=== PATIENT | female | born 1940 | race Caucasian/White ===

== ENCOUNTER 2017-12-11 13:26 | Inpatient (IN) | payer OTHER ==
[2017-12-11 14:21] LABS: BASO % 0 % (0-3); EOS # 0.2 x10^3/uL (0.0-0.7); EOS % 2 % (0-3); LYMPH # 0.5 x10^3/uL (1.0-4.8); LYMPH % 6 % (24-48); MEAN CORPUSCULAR HEMOGLOBIN 30 pg (25-35); MEAN CORPUSCULAR HGB CONC 33 g/dL (31-37); MEAN CORPUSCULAR VOLUME 91 fL (79-100); MONO # 0.4 x10^3/uL (0.0-1.1); MONO % 5 % (0-9); NEUT # 6.7 x10^3uL (1.8-7.7); NEUT % 86 % (31-73); PLATELET COUNT 425 x10^3/uL (140-400); RED BLOOD COUNT 2.02 x10^6/uL (3.50-5.40); RED CELL DISTRIBUTION WIDTH 15.4 % (11.5-14.5); WHITE BLOOD COUNT 7.7 x10^3/uL (4.0-11.0)
[2017-12-11] MEDS: IPRATRPIUM/ALBUTEROL 0.5/2.5MG 3 ML NEBU. NEB ×3 (14:22→20:30)
[2017-12-11 14:30] LABS: ADD MAN DIFF? YES; HEMATOCRIT 18.4 % (36.0-47.0)
[2017-12-11 14:31] LABS: ANION GAP 21 (6-14); BLOOD UREA NITROGEN 38 mg/dL (7-20); BUN/CREATININE RATIO 8 (6-20); CARBON DIOXIDE 14 mmol/L (21-32); CHLORIDE 104 mmol/L (98-107); CREATININE 4.6 mg/dL (0.6-1.0); GFR 9.2; GLUCOSE 156 mg/dL (70-99); POTASSIUM 4.1 mmol/L (3.5-5.1); SODIUM 139 mmol/L (136-145)
[2017-12-11 14:35] LABS: INR 1.3 (0.8-1.1); PARTIAL THROMBOPLASTIN TIME 39 SEC (24-38); PROTHROMBIN TIME PATIENT 15.1 SEC (11.7-14.0)
[2017-12-11 14:37] LABS: ALBUMIN 2.7 g/dL (3.4-5.0); ALBUMIN/GLOBULIN RATIO 0.7 (1.0-1.7); ALK PHOS 133 U/L (46-116); ALT (SGPT) 16 U/L (14-59); AST (SGOT) 21 U/L (15-37); MAGNESIUM 1.8 mg/dL (1.8-2.4); TOTAL BILIRUBIN 0.1 mg/dL (0.2-1.0); TOTAL PROTEIN 6.6 g/dL (6.4-8.2)
[2017-12-11 14:42] LABS: NT-PRO BNP 28158 pg/mL (0-449)
[2017-12-11] MEDS: methylPREDNISolone SOD SUCC PF 125 MG/2 ML VIAL. IV (14:48)
[2017-12-11] MEDS ORDERED: MORPHINE SULFATE 2 MG/ML DISP.SYRIN. IV (15:00)
[2017-12-11] MEDS ORDERED: ONDANSETRON PF 4 MG/2 ML VIAL. IV (15:00)
[2017-12-11] MEDS ORDERED: ACETAMINOPHEN 325 MG TABLET. PO (15:00)
[2017-12-11 15:14] LABS: FECAL OB PT NEGATIVE (NEG); NEG OBC FOB NEG; POS OBC FOB POS
[2017-12-11 15:44] LABS: INFLUENZA A PATIENT NEGATIVE (NEGATIVE); INFLUENZA B PATIENT NEGATIVE (NEGATIVE); OBC FLU VALID
[2017-12-11] MEDS: FUROSEMIDE 40 MG/4 ML VIAL. IVP (15:58)
[2017-12-11 16:56] LABS: IMMEDIATE SPIN CROSSMATCH 1 3
[2017-12-11 17:09] LABS: % BANDS 2 % (0-9); % EOS 2 % (0-5); % LYMPHS 9 % (24-48); % MONOS 5 % (0-10); % SEGS 82 % (35-66)
[2017-12-11 17:11] LABS: ANISOCYTOSIS MOD; PLT ESTIMATE INCREASED (ADEQUATE)
[2017-12-11 17:14] LABS: BURR CELLS FEW; SCHISTOCYTES FEW
[2017-12-11 17:15] LABS: POIKILOCYTOSIS MOD; SPHEROCYTES OCC
[2017-12-11] MEDS: FERROUS SULFATE ORAL 300 MG/5 ML SOLUTION. PO (17:51)
[2017-12-11] MEDS: ATORVASTATIN CALCIUM 40 MG TABLET. PO (21:09)
[2017-12-11 21:49] LABS: TROPONINI 0.019 ng/mL (0.000-0.055)
[2017-12-12] MEDS ORDERED: ALBUTEROL SULFATE 2.5 MG/3 ML NEBU. NEB (03:30)
[2017-12-12 05:18] LABS: ADD MAN DIFF? NO
[2017-12-12 05:44] LABS: BASO % 0 % (0-3); EOS % 0 % (0-3); LYMPH # 0.2 x10^3/uL (1.0-4.8); LYMPH % 2 % (24-48); MEAN CORPUSCULAR HEMOGLOBIN 28 pg (25-35); MEAN CORPUSCULAR HGB CONC 31 g/dL (31-37); MEAN CORPUSCULAR VOLUME 88 fL (79-100); MONO # 0.1 x10^3/uL (0.0-1.1); MONO % 1 % (0-9); NEUT # 7.7 x10^3uL (1.8-7.7); NEUT % 97 % (31-73); PLATELET COUNT 380 x10^3/uL (140-400); RED BLOOD COUNT 2.52 x10^6/uL (3.50-5.40); RED CELL DISTRIBUTION WIDTH 19.8 % (11.5-14.5)
[2017-12-12 06:09] LABS: HEMATOCRIT 22.2 % (36.0-47.0)
[2017-12-12 06:15] LABS: ANION GAP 21 (6-14); BLOOD UREA NITROGEN 40 mg/dL (7-20); CALCIUM 8.9 mg/dL (8.5-10.1); CARBON DIOXIDE 14 mmol/L (21-32); CHLORIDE 106 mmol/L (98-107); CREATININE 4.6 mg/dL (0.6-1.0); GFR 9.2; GLUCOSE 173 mg/dL (70-99); POTASSIUM 4.2 mmol/L (3.5-5.1); SODIUM 141 mmol/L (136-145)
[2017-12-12 06:21] LABS: TROPONINI 0.021 ng/mL (0.000-0.055)
[2017-12-12] MEDS ORDERED: PANTOPRAZOLE 40 MG TABLET.DR. PO (07:30)
[2017-12-12] MEDS: IPRATRPIUM/ALBUTEROL 0.5/2.5MG 3 ML NEBU. NEB ×4 (07:58→20:31)
[2017-12-12] MEDS ORDERED: FERROUS SULFATE 325 MG TABLET. PO (08:00)
[2017-12-12] MEDS: FUROSEMIDE 40 MG TABLET. PO (08:00)
[2017-12-12] MEDS: PANTOPRAZOLE 40 MG TABLET.DR. PO (09:18)
[2017-12-12] MEDS: FERROUS SULFATE ORAL 300 MG/5 ML SOLUTION. PO ×2 (09:18→16:57)
[2017-12-12] MEDS: amLODIPine BESYLATE 10 MG TABLET PO (09:31)
[2017-12-12] MEDS: FUROSEMIDE 40 MG/4 ML VIAL. IVP (12:59)
[2017-12-12] MEDS: SODIUM BICARB ADULT 8.4% 50 MEQ/50 ML DISP.SYRIN. IV ×4 (13:00→18:00)
[2017-12-12] MEDS: methylPREDNISolone SOD SUCC PF 40 MG/ML VIAL. IV ×2 (13:00→21:02)
[2017-12-12] MEDS: POTASSIUM CHLORIDE 20 MEQ TABLET.ER. PO (13:06)
[2017-12-12] MEDS ORDERED: MAGNESIUM SULFATE 2GM 50 ML IV ×2 (13:30→13:45)
[2017-12-12] MEDS ORDERED: TOTAL VOLUME IV (13:30)
[2017-12-12] MEDS ORDERED: POTASSIUM CHLORIDE 20MEQ 50 ML IV ×2 (13:30)
[2017-12-12] MEDS ORDERED: FUROSEMIDE IV (13:30)
[2017-12-12 13:31] LABS: BASE EXCESS ABG -12 mmol/L (-3-3); HCO3 ABG 13 mmol/L (21-28); PCO2 ABG 25 mmHg (35-46); PH ABG 7.32 (7.35-7.45); PO2 ABG 82 mmHg (65-108); SAT O2 ABG 95 % (92-99)
[2017-12-12] MEDS ORDERED: LIDOCAINE WITH 8.4% SOD BICARB 3 ML DISP.SYRIN. (13:45)
[2017-12-12] MEDS ORDERED: HEPARIN for IV BOLUS 10,000 UNIT/10 ML VIAL. (13:45)
[2017-12-12] MEDS: LIDOCAINE WITH 8.4% SOD BICARB 3 ML DISP.SYRIN. INJ (14:12)
[2017-12-12 14:50] LABS: RETIC COUNT 0.8 % (0.5-2.5)
[2017-12-12 15:03] LABS: % SAT IRON 18 % (15-34); IRON,SERUM 43 ug/dL (50-170)
[2017-12-12] MEDS: FUROSEMIDE INJ 100 MG in IV NORMAL SALINE 100ML 100 ML IV (15:07)
[2017-12-12 15:12] LABS: LACTIC ACID 1.6 mmol/L (0.4-2.0)
[2017-12-12 15:18] LABS: FERRITIN 79 ng/mL (8-252)
[2017-12-12] MEDS ORDERED: FUROSEMIDE 40 MG/4 ML VIAL. IVP (16:00)
[2017-12-12 18:37] LABS: POTASSIUM 4.2 mmol/L (3.5-5.1)
[2017-12-12] MEDS: ATORVASTATIN CALCIUM 40 MG TABLET. PO (21:03)
[2017-12-12] MEDS: ZOLPIDEM 5 MG TABLET. PO (22:12)
[2017-12-13 00:56] LABS: POTASSIUM 3.8 mmol/L (3.5-5.1)
[2017-12-13] MEDS: methylPREDNISolone SOD SUCC PF 40 MG/ML VIAL. IV ×3 (06:17→21:15)
[2017-12-13 06:33] LABS: ADD MAN DIFF? NO
[2017-12-13 06:36] LABS: BASO % 0 % (0-3); EOS % 0 % (0-3); HEMATOCRIT 22.2 % (36.0-47.0); HEMOGLOBIN 7.4 g/dL (12.0-15.5); LYMPH # 0.2 x10^3/uL (1.0-4.8); LYMPH % 3 % (24-48); MEAN CORPUSCULAR HEMOGLOBIN 28 pg (25-35); MEAN CORPUSCULAR HGB CONC 34 g/dL (31-37); MEAN CORPUSCULAR VOLUME 84 fL (79-100); MONO # 0.1 x10^3/uL (0.0-1.1); MONO % 2 % (0-9); NEUT # 7.3 x10^3uL (1.8-7.7); NEUT % 95 % (31-73); PLATELET COUNT 321 x10^3/uL (140-400); RED BLOOD COUNT 2.65 x10^6/uL (3.50-5.40); RED CELL DISTRIBUTION WIDTH 18.6 % (11.5-14.5); WHITE BLOOD COUNT 7.6 x10^3/uL (4.0-11.0)
[2017-12-13 06:51] LABS: MAGNESIUM 1.9 mg/dL (1.8-2.4)
[2017-12-13 06:52] LABS: ALBUMIN 2.4 g/dL (3.4-5.0); ANION GAP 15 (6-14); BLOOD UREA NITROGEN 45 mg/dL (7-20); CALCIUM 8.7 mg/dL (8.5-10.1); CARBON DIOXIDE 20 mmol/L (21-32); CHLORIDE 103 mmol/L (98-107); CREATININE 4.7 mg/dL (0.6-1.0); GLUCOSE 147 mg/dL (70-99); PHOSPHORUS 5.5 mg/dL (2.6-4.7); POTASSIUM 3.9 mmol/L (3.5-5.1); SODIUM 138 mmol/L (136-145)
[2017-12-13 07:00] LABS: LACTIC ACID 0.6 mmol/L (0.4-2.0)
[2017-12-13] MEDS: IPRATRPIUM/ALBUTEROL 0.5/2.5MG 3 ML NEBU. NEB ×4 (07:15→20:05)
[2017-12-13] MEDS: FERROUS SULFATE ORAL 300 MG/5 ML SOLUTION. PO ×2 (08:40→19:39)
[2017-12-13] MEDS: PANTOPRAZOLE 40 MG TABLET.DR. PO (08:41)
[2017-12-13] MEDS: amLODIPine BESYLATE 10 MG TABLET PO (08:41)
[2017-12-13] MEDS: BUDESONIDE 0.5 MG/2 ML NEBU. NEB ×2 (11:27→20:05)
[2017-12-13 15:21] LABS: POTASSIUM 3.6 mmol/L (3.5-5.1)
[2017-12-13] MEDS ORDERED: IV NORMAL SALINE 1000ML BAG 1,000 ML IV ×2 (15:30)
[2017-12-13] MEDS ORDERED: DIALYSIS PATIENT. MC ×2 (15:45)
[2017-12-13] MEDS: DARBEPOETIN ALFA 60 MCG/0.3 ML DISP.SYRIN. SQ (21:15)
[2017-12-13] MEDS: ATORVASTATIN CALCIUM 40 MG TABLET. PO (21:15)
[2017-12-13] MEDS: ZOLPIDEM 5 MG TABLET. PO (21:39)
[2017-12-14 07:04] LABS: ADD MAN DIFF? NO
[2017-12-14 07:18] LABS: MAGNESIUM 1.9 mg/dL (1.8-2.4)
[2017-12-14 07:22] LABS: ALBUMIN 2.4 g/dL (3.4-5.0); ANION GAP 8 (6-14); BLOOD UREA NITROGEN 26 mg/dL (7-20); CALCIUM 7.9 mg/dL (8.5-10.1); CARBON DIOXIDE 32 mmol/L (21-32); CHLORIDE 99 mmol/L (98-107); CREATININE 2.9 mg/dL (0.6-1.0); GFR 15.7; GLUCOSE 140 mg/dL (70-99); PHOSPHORUS 4.2 mg/dL (2.6-4.7); POTASSIUM 3.5 mmol/L (3.5-5.1); SODIUM 139 mmol/L (136-145)
[2017-12-14 07:27] LABS: LACTIC ACID 0.8 mmol/L (0.4-2.0)
[2017-12-14] MEDS: IPRATRPIUM/ALBUTEROL 0.5/2.5MG 3 ML NEBU. NEB ×4 (07:29→19:16)
[2017-12-14] MEDS: BUDESONIDE 0.5 MG/2 ML NEBU. NEB ×2 (07:29→19:16)
[2017-12-14 07:35] LABS: BASO % 0 % (0-3); EOS % 0 % (0-3); HEMATOCRIT 23.3 % (36.0-47.0); HEMOGLOBIN 7.6 g/dL (12.0-15.5); LYMPH # 0.2 x10^3/uL (1.0-4.8); LYMPH % 3 % (24-48); MEAN CORPUSCULAR HEMOGLOBIN 28 pg (25-35); MEAN CORPUSCULAR HGB CONC 33 g/dL (31-37); MEAN CORPUSCULAR VOLUME 85 fL (79-100); MONO # 0.3 x10^3/uL (0.0-1.1); MONO % 3 % (0-9); NEUT # 8.1 x10^3uL (1.8-7.7); NEUT % 94 % (31-73); PLATELET COUNT 304 x10^3/uL (140-400); RED BLOOD COUNT 2.75 x10^6/uL (3.50-5.40); RED CELL DISTRIBUTION WIDTH 18.9 % (11.5-14.5); WHITE BLOOD COUNT 8.7 x10^3/uL (4.0-11.0)
[2017-12-14] MEDS: PANTOPRAZOLE 40 MG TABLET.DR. PO (09:47)
[2017-12-14] MEDS: methylPREDNISolone SOD SUCC PF 40 MG/ML VIAL. IV (09:48)
[2017-12-14] MEDS: FERROUS SULFATE ORAL 300 MG/5 ML SOLUTION. PO ×2 (09:48→17:41)
[2017-12-14] MEDS: amLODIPine BESYLATE 10 MG TABLET PO (09:48)
[2017-12-14] MEDS: ATORVASTATIN CALCIUM 40 MG TABLET. PO (20:30)
[2017-12-14] MEDS: ZOLPIDEM 5 MG TABLET. PO (20:30)
[2017-12-15 05:07] LABS: ADD MAN DIFF? NO
[2017-12-15 05:09] LABS: BASO % 0 % (0-3); EOS % 0 % (0-3); HEMATOCRIT 23.3 % (36.0-47.0); HEMOGLOBIN 7.7 g/dL (12.0-15.5); LYMPH # 0.8 x10^3/uL (1.0-4.8); LYMPH % 8 % (24-48); MEAN CORPUSCULAR HEMOGLOBIN 28 pg (25-35); MEAN CORPUSCULAR HGB CONC 33 g/dL (31-37); MEAN CORPUSCULAR VOLUME 85 fL (79-100); MONO # 0.8 x10^3/uL (0.0-1.1); MONO % 8 % (0-9); NEUT # 8.2 x10^3uL (1.8-7.7); NEUT % 83 % (31-73); PLATELET COUNT 291 x10^3/uL (140-400); RED BLOOD COUNT 2.74 x10^6/uL (3.50-5.40); RED CELL DISTRIBUTION WIDTH 18.5 % (11.5-14.5); WHITE BLOOD COUNT 9.8 x10^3/uL (4.0-11.0)
[2017-12-15 05:24] LABS: ALBUMIN 2.4 g/dL (3.4-5.0); ANION GAP 8 (6-14); CALCIUM 7.8 mg/dL (8.5-10.1); CARBON DIOXIDE 31 mmol/L (21-32); CHLORIDE 100 mmol/L (98-107); CREATININE 3.7 mg/dL (0.6-1.0); GFR 11.9; GLUCOSE 109 mg/dL (70-99); MAGNESIUM 1.8 mg/dL (1.8-2.4); PHOSPHORUS 3.4 mg/dL (2.6-4.7); POTASSIUM 3.3 mmol/L (3.5-5.1); SODIUM 139 mmol/L (136-145)
[2017-12-15 05:26] LABS: BLOOD UREA NITROGEN 40 mg/dL (7-20)
[2017-12-15 05:30] LABS: LACTIC ACID 0.8 mmol/L (0.4-2.0)
[2017-12-15] MEDS: BUDESONIDE 0.5 MG/2 ML NEBU. NEB ×2 (06:40→19:15)
[2017-12-15] MEDS: IPRATRPIUM/ALBUTEROL 0.5/2.5MG 3 ML NEBU. NEB ×4 (06:40→19:15)
[2017-12-15] MEDS ORDERED: fentaNYL PF VIAL 100 MCG/2 ML VIAL (08:45)
[2017-12-15] MEDS ORDERED: MIDAZOLAM HCL/PF 2 MG/2 ML VIAL. (08:45)
[2017-12-15] MEDS: LIDOCAINE WITH 8.4% SOD BICARB 3 ML DISP.SYRIN. IJ (08:45)
[2017-12-15] MEDS: fentaNYL PF VIAL 100 MCG/2 ML VIAL IV (09:09)
[2017-12-15] MEDS: MIDAZOLAM HCL/PF 2 MG/2 ML VIAL. IV (09:10)
[2017-12-15] MEDS: LIDOCAINE 2%/EPI 1:100,000 20 ML VIAL. IJ (09:11)
[2017-12-15] MEDS ORDERED: DIALYSIS PATIENT. MC ×2 (09:15)
[2017-12-15] MEDS ORDERED: ACETAMINOPHEN 500 MG TABLET PO (09:15)
[2017-12-15] MEDS ORDERED: diphenhydrAMINE 50 MG/ML VIAL IV ×2 (09:15)
[2017-12-15] MEDS ORDERED: LABETALOL 20 MG/4 ML DISP.SYRIN. IVP (09:15)
[2017-12-15] MEDS: methylPREDNISolone SOD SUCC PF 40 MG/ML VIAL. IV (11:47)
[2017-12-15] MEDS: amLODIPine BESYLATE 10 MG TABLET PO (11:48)
[2017-12-15] MEDS: FERROUS SULFATE ORAL 300 MG/5 ML SOLUTION. PO ×2 (11:48→17:00)
[2017-12-15] MEDS: PANTOPRAZOLE 40 MG TABLET.DR. PO (11:48)
[2017-12-15 13:19] LABS: HEP B SURFACE ABDY Reactive (.); HEP B SURFACE AG Negative (Negative)
[2017-12-15] MEDS: POTASSIUM CHLORIDE 20 MEQ TABLET.ER. PO (13:30)
[2017-12-15] MEDS: ATORVASTATIN CALCIUM 40 MG TABLET. PO (20:47)
[2017-12-16 06:29] LABS: ADD MAN DIFF? NO
[2017-12-16 06:44] LABS: BASO % 0 % (0-3); EOS % 0 % (0-3); HEMATOCRIT 26.8 % (36.0-47.0); HEMOGLOBIN 8.7 g/dL (12.0-15.5); LYMPH # 0.9 x10^3/uL (1.0-4.8); LYMPH % 9 % (24-48); MEAN CORPUSCULAR HEMOGLOBIN 28 pg (25-35); MEAN CORPUSCULAR HGB CONC 33 g/dL (31-37); MEAN CORPUSCULAR VOLUME 86 fL (79-100); MONO # 0.6 x10^3/uL (0.0-1.1); MONO % 6 % (0-9); NEUT # 8.4 x10^3uL (1.8-7.7); NEUT % 85 % (31-73); PLATELET COUNT 308 x10^3/uL (140-400); RED BLOOD COUNT 3.12 x10^6/uL (3.50-5.40); RED CELL DISTRIBUTION WIDTH 18.7 % (11.5-14.5); WHITE BLOOD COUNT 9.9 x10^3/uL (4.0-11.0)
[2017-12-16 06:51] LABS: ALBUMIN 2.7 g/dL (3.4-5.0); ANION GAP 8 (6-14); BLOOD UREA NITROGEN 16 mg/dL (7-20); CALCIUM 8.5 mg/dL (8.5-10.1); CARBON DIOXIDE 31 mmol/L (21-32); CHLORIDE 101 mmol/L (98-107); CREATININE 2.2 mg/dL (0.6-1.0); GFR 21.6; GLUCOSE 103 mg/dL (70-99); MAGNESIUM 1.9 mg/dL (1.8-2.4); PHOSPHORUS 2.9 mg/dL (2.6-4.7); POTASSIUM 4.1 mmol/L (3.5-5.1); SODIUM 140 mmol/L (136-145)
[2017-12-16 06:54] LABS: LACTIC ACID 0.9 mmol/L (0.4-2.0)
[2017-12-16] MEDS: BUDESONIDE 0.5 MG/2 ML NEBU. NEB ×2 (07:32→20:04)
[2017-12-16] MEDS: IPRATRPIUM/ALBUTEROL 0.5/2.5MG 3 ML NEBU. NEB ×4 (07:32→20:04)
[2017-12-16] MEDS: ASCORBIC ACID 500 MG TABLET PO (08:08)
[2017-12-16] MEDS: FERROUS SULFATE ORAL 300 MG/5 ML SOLUTION. PO ×2 (08:08→17:31)
[2017-12-16] MEDS: PANTOPRAZOLE 40 MG TABLET.DR. PO (08:08)
[2017-12-16] MEDS: MULTIVITAMIN with MINERAL TABLET. PO (08:09)
[2017-12-16] MEDS: amLODIPine BESYLATE 10 MG TABLET PO (08:09)
[2017-12-16] MEDS: methylPREDNISolone SOD SUCC PF 40 MG/ML VIAL. IV (08:09)
[2017-12-16] MEDS: CARVEDILOL 3.125 MG TABLET. PO ×2 (08:47→17:31)
[2017-12-16] MEDS: ASPIRIN ENTERIC COATED 81 MG TABLET.DR. PO (13:15)
[2017-12-16 13:42] LABS: CHOLESTEROL 137 mg/dL (0-200); CHOLESTEROL/HDL RATIO 1.9; HDLC 73 mg/dL (40-60); LDLC 54 mg/dL (0-100); NON-HDL CHOLESTEROL 64 mg/dL (0-129); TRIGLYCERIDES 52 mg/dL (0-150); VLDLC 10 mg/dL (0-40)
[2017-12-16 14:26] LABS: HCV ANTIBODY 0.1 s/co ratio (0.0-0.9); HEP A IGM ABDY Negative (Negative); HEP B SURFACE AG Negative (Negative)
[2017-12-16] MEDS: ATORVASTATIN CALCIUM 40 MG TABLET. PO (20:53)
[2017-12-16] MEDS ORDERED: DARBEPOETIN ALFA 60 MCG/0.3 ML DISP.SYRIN. SQ (21:00)
[2017-12-17 04:48] LABS: ADD MAN DIFF? NO
[2017-12-17 04:59] LABS: BASO % 0 % (0-3); EOS # 0.1 x10^3/uL (0.0-0.7); EOS % 1 % (0-3); HEMATOCRIT 22.7 % (36.0-47.0); HEMOGLOBIN 7.4 g/dL (12.0-15.5); LYMPH # 0.9 x10^3/uL (1.0-4.8); LYMPH % 10 % (24-48); MEAN CORPUSCULAR HEMOGLOBIN 28 pg (25-35); MEAN CORPUSCULAR HGB CONC 33 g/dL (31-37); MEAN CORPUSCULAR VOLUME 85 fL (79-100); MONO # 0.6 x10^3/uL (0.0-1.1); MONO % 6 % (0-9); NEUT # 7.4 x10^3uL (1.8-7.7); NEUT % 82 % (31-73); PLATELET COUNT 254 x10^3/uL (140-400); RED BLOOD COUNT 2.67 x10^6/uL (3.50-5.40); RED CELL DISTRIBUTION WIDTH 18.4 % (11.5-14.5)
[2017-12-17 05:27] LABS: ALBUMIN 2.4 g/dL (3.4-5.0); ANION GAP 9 (6-14); CALCIUM 8.2 mg/dL (8.5-10.1); CARBON DIOXIDE 28 mmol/L (21-32); CHLORIDE 100 mmol/L (98-107); CREATININE 3.1 mg/dL (0.6-1.0); GFR 14.6; GLUCOSE 99 mg/dL (70-99); MAGNESIUM 1.8 mg/dL (1.8-2.4); PHOSPHORUS 3.1 mg/dL (2.6-4.7); POTASSIUM 3.6 mmol/L (3.5-5.1); SODIUM 137 mmol/L (136-145)
[2017-12-17 05:31] LABS: LACTIC ACID 0.5 mmol/L (0.4-2.0)
[2017-12-17 05:35] LABS: BLOOD UREA NITROGEN 35 mg/dL (7-20)
[2017-12-17] MEDS: BUDESONIDE 0.5 MG/2 ML NEBU. NEB (07:45)
[2017-12-17] MEDS: IPRATRPIUM/ALBUTEROL 0.5/2.5MG 3 ML NEBU. NEB ×3 (07:45→15:18)
[2017-12-17] MEDS: CARVEDILOL 3.125 MG TABLET. PO ×2 (08:00→18:16)
[2017-12-17] MEDS: FERROUS SULFATE ORAL 300 MG/5 ML SOLUTION. PO ×2 (08:00→18:16)
[2017-12-17] MEDS ORDERED: IV NORMAL SALINE 1000ML BAG 1,000 ML IV ×2 (08:33)
[2017-12-17] MEDS ORDERED: DIALYSIS PATIENT. MC (08:45)
[2017-12-17] MEDS ORDERED: ACETAMINOPHEN 500 MG TABLET PO (08:45)
[2017-12-17] MEDS ORDERED: diphenhydrAMINE 50 MG/ML VIAL IV ×2 (08:45)
[2017-12-17] MEDS ORDERED: 0.9 % SODIUM CHLORIDE 10 ML DISP.SYRIN. IV ×2 (08:45)
[2017-12-17] MEDS: ASCORBIC ACID 500 MG TABLET PO (14:57)
[2017-12-17] MEDS: ASPIRIN ENTERIC COATED 81 MG TABLET.DR. PO (14:57)
[2017-12-17] MEDS: methylPREDNISolone SOD SUCC PF 40 MG/ML VIAL. IV (14:58)
[2017-12-17] MEDS: PANTOPRAZOLE 40 MG TABLET.DR. PO (14:58)
[2017-12-17] MEDS: amLODIPine BESYLATE 10 MG TABLET PO (14:58)
[2017-12-17] MEDS: MULTIVITAMIN with MINERAL TABLET. PO (14:58)
== END 2017-12-17 18:45 | disposition home health service (06) | DRG 673 ==
LOC: ER 13:26 → 2 SOUTH 14:39
PROC: 5A1D70Z Performance of Urinary Filtration, Intermittent, Less than 6 Hours Per Day (ICD-10-PCS; principal; 2017-12-11)
PROC: 5A1D70Z Performance of Urinary Filtration, Intermittent, Less than 6 Hours Per Day (ICD-10-PCS; 2017-12-11)
PROC: 5A1D70Z Performance of Urinary Filtration, Intermittent, Less than 6 Hours Per Day (ICD-10-PCS; 2017-12-11)
PROC: 5A09357 Assistance with Respiratory Ventilation, Less than 24 Consecutive Hours, Continuous Positive Airway Pressure (ICD-10-PCS; 2017-12-11)
PROC: 30233N1 Transfusion of Nonautologous Red Blood Cells into Peripheral Vein, Percutaneous Approach (ICD-10-PCS; 2017-12-11)
PROC: B244ZZZ Ultrasonography of Right Heart (ICD-10-PCS; 2017-12-11)
PROC: 0JH63XZ Insertion of Tunneled Vascular Access Device into Chest Subcutaneous Tissue and Fascia, Percutaneous Approach (ICD-10-PCS; 2017-12-15)
PROC: 02H633Z Insertion of Infusion Device into Right Atrium, Percutaneous Approach (ICD-10-PCS; 2017-12-15)
DX: N17.9 Acute kidney failure, unspecified (principal); I50.43 Acute on chronic combined systolic (congestive) and diastolic (congestive) heart failure; J96.21 Acute and chronic respiratory failure with hypoxia; I13.2 Hypertensive heart and chronic kidney disease with heart failure and with stage 5 chronic kidney disease, or end stage renal disease; E87.2 Acidosis; E46 Unspecified protein-calorie malnutrition; D68.9 Coagulation defect, unspecified; G62.9 Polyneuropathy, unspecified; E83.51 Hypocalcemia; J44.1 Chronic obstructive pulmonary disease with (acute) exacerbation; K92.2 Gastrointestinal hemorrhage, unspecified; N18.6 End stage renal disease; D64.9 Anemia, unspecified; Z68.21 Body mass index [BMI] 21.0-21.9, adult; E78.00 Pure hypercholesterolemia, unspecified; E78.5 Hyperlipidemia, unspecified; F17.200 Nicotine dependence, unspecified, uncomplicated; I25.10 Atherosclerotic heart disease of native coronary artery without angina pectoris; I73.00 Raynaud's syndrome without gangrene; K21.9 Gastro-esophageal reflux disease without esophagitis; K57.30 Diverticulosis of large intestine without perforation or abscess without bleeding; Z82.49 Family history of ischemic heart disease and other diseases of the circulatory system; Z85.41 Personal history of malignant neoplasm of cervix uteri; Z86.73 Personal history of transient ischemic attack (TIA), and cerebral infarction without residual deficits; Z90.710 Acquired absence of both cervix and uterus; Z95.1 Presence of aortocoronary bypass graft; Z99.2 Dependence on renal dialysis; F41.9 Anxiety disorder, unspecified; M19.90 Unspecified osteoarthritis, unspecified site; R73.9 Hyperglycemia, unspecified; I73.9 Peripheral vascular disease, unspecified; M81.0 Age-related osteoporosis without current pathological fracture; Z80.0 Family history of malignant neoplasm of digestive organs
CPT/HCPCS: 36415; 36430; 36556; 36581; 36600; 71045; 76937; 77001; 80048; 80053; 80061; 80069; 80074; 82274; 82728; 82805; 83540; 83550; 83605; 83735; 83880; 84132; 84484; 85007; 85025; 85045; 85610; 85730; 86704; 86705; 86706; 86850; 86900; 86901; 86920; 87340; 87804; 87804-59; 93005; 93306; 94618; 94640; 94660; 94760; 96374; 96375; 97110-GO; 97116-GP; 97162-GP; 97165-GO; 97530-GP; 97535-GO; 99152; 99291; 99291-25; C1750; C1769; C1892; C1894; J0690; J0881; J1940; J2250; J2920; J2930; J3010; J3490; J7620; J7626; P9016

== ENCOUNTER 2017-12-26 14:21 | Inpatient (IN) | payer OTHER ==
[2017-12-26] MEDS ORDERED: diphenhydrAMINE ORAL ELIXIR 12.5 MG/5 ML ML PO (15:15)
[2017-12-26] MEDS ORDERED: ACETAMINOPHEN 325 MG TABLET. PO ×2 (15:15→16:45)
[2017-12-26 16:06] LABS: ADD MAN DIFF? NO
[2017-12-26 16:10] LABS: BASO % 1 % (0-3); EOS # 0.2 x10^3/uL (0.0-0.7); EOS % 6 % (0-3); LYMPH # 0.5 x10^3/uL (1.0-4.8); LYMPH % 13 % (24-48); MEAN CORPUSCULAR HEMOGLOBIN 30 pg (25-35); MEAN CORPUSCULAR HGB CONC 33 g/dL (31-37); MEAN CORPUSCULAR VOLUME 89 fL (79-100); MONO # 0.4 x10^3/uL (0.0-1.1); MONO % 11 % (0-9); NEUT # 2.6 x10^3uL (1.8-7.7); NEUT % 70 % (31-73); PLATELET COUNT 202 x10^3/uL (140-400); RED BLOOD COUNT 1.98 x10^6/uL (3.50-5.40); RED CELL DISTRIBUTION WIDTH 20.5 % (11.5-14.5); WHITE BLOOD COUNT 3.7 x10^3/uL (4.0-11.0)
[2017-12-26 16:14] LABS: HEMATOCRIT 17.6 % (36.0-47.0); HEMOGLOBIN 5.9 g/dL (12.0-15.5)
[2017-12-26 16:28] LABS: ALBUMIN 2.4 g/dL (3.4-5.0); ALBUMIN/GLOBULIN RATIO 0.7 (1.0-1.7); ALK PHOS 134 U/L (46-116); ALT (SGPT) 19 U/L (14-59); ANION GAP 9 (6-14); AST (SGOT) 22 U/L (15-37); BLOOD UREA NITROGEN 18 mg/dL (7-20); BUN/CREATININE RATIO 5 (6-20); CALCIUM 8.3 mg/dL (8.5-10.1); CARBON DIOXIDE 28 mmol/L (21-32); CHLORIDE 101 mmol/L (98-107); CREATININE 3.4 mg/dL (0.6-1.0); GFR 13.1; GLUCOSE 136 mg/dL (70-99); SODIUM 138 mmol/L (136-145); TOTAL BILIRUBIN 0.1 mg/dL (0.2-1.0); TOTAL PROTEIN 5.9 g/dL (6.4-8.2)
[2017-12-26] MEDS ORDERED: fentaNYL PF VIAL 100 MCG/2 ML VIAL IV (16:45)
[2017-12-26] MEDS ORDERED: ONDANSETRON PF 4 MG/2 ML VIAL. IV (16:45)
[2017-12-26 17:11] LABS: PLT ESTIMATE ADEQUATE (ADEQUATE)
[2017-12-26 17:12] LABS: ANISOCYTOSIS MOD
[2017-12-26 17:13] LABS: POIKILOCYTOSIS SLIGHT
[2017-12-26 17:16] LABS: OVALOCYTES FEW
[2017-12-27 04:51] LABS: ADD MAN DIFF? NO
[2017-12-27 05:07] LABS: BASO % 1 % (0-3); EOS # 0.2 x10^3/uL (0.0-0.7); EOS % 5 % (0-3); LYMPH # 0.6 x10^3/uL (1.0-4.8); LYMPH % 13 % (24-48); MEAN CORPUSCULAR HEMOGLOBIN 30 pg (25-35); MEAN CORPUSCULAR HGB CONC 34 g/dL (31-37); MEAN CORPUSCULAR VOLUME 89 fL (79-100); MONO # 0.4 x10^3/uL (0.0-1.1); MONO % 9 % (0-9); NEUT # 3.4 x10^3uL (1.8-7.7); NEUT % 72 % (31-73); PLATELET COUNT 185 x10^3/uL (140-400); RED CELL DISTRIBUTION WIDTH 18.3 % (11.5-14.5); WHITE BLOOD COUNT 4.7 x10^3/uL (4.0-11.0)
[2017-12-27 05:35] LABS: HEMOGLOBIN 6.9 g/dL (12.0-15.5)
[2017-12-27 05:36] LABS: HEMATOCRIT 20.5 % (36.0-47.0)
[2017-12-27] MEDS ORDERED: IV NORMAL SALINE 1000ML BAG 1,000 ML IV ×2 (10:37)
[2017-12-27] MEDS ORDERED: DIALYSIS PATIENT. MC ×2 (10:45)
[2017-12-27 12:18] LABS: IMMEDIATE SPIN CROSSMATCH 1 2
[2017-12-27 12:30] LABS: % SAT IRON 17 % (15-34); IRON,SERUM 43 ug/dL (50-170)
[2017-12-27 12:44] LABS: FERRITIN 158 ng/mL (8-252)
[2017-12-27] MEDS ORDERED: MAGNESIUM SULFATE 2GM 50 ML IV (12:45)
[2017-12-27] MEDS: FOLIC/VIT B COMP W-C (RENAL) TABLET. PO (15:34)
[2017-12-27] MEDS: DARBEPOETIN ALFA 60 MCG/0.3 ML DISP.SYRIN. SQ (20:58)
[2017-12-28 05:47] LABS: HEMOGLOBIN 9.2 g/dL (12.0-15.5)
[2017-12-28 06:29] LABS: MAGNESIUM 1.8 mg/dL (1.8-2.4)
[2017-12-28] MEDS: FOLIC/VIT B COMP W-C (RENAL) TABLET. PO (09:26)
[2017-12-28] MEDS: ASPIRIN ENTERIC COATED 81 MG TABLET.DR. PO (13:00)
[2017-12-28] MEDS: CLOPIDOGREL BISULFATE 75 MG TABLET PO (13:00)
[2017-12-28] MEDS: amLODIPine BESYLATE 10 MG TABLET PO (14:18)
[2017-12-28] MEDS: FERROUS SULFATE 325 MG TABLET. PO (14:19)
[2017-12-28] MEDS: PANTOPRAZOLE 40 MG TABLET.DR. PO (14:19)
[2017-12-28] MEDS ORDERED: CARVEDILOL 3.125 MG TABLET. PO (17:00)
[2017-12-28] MEDS ORDERED: ATORVASTATIN CALCIUM 40 MG TABLET. PO (21:00)
[2017-12-29 09:48] LABS: FOLATE 13.02 ng/ml (3.2-20.0)
[2017-12-29 09:48] LABS: VITAMIN-B12 400 pg/mL (247-911)
[2017-12-30 07:04] LABS: ERYTHROPOIETIN LVL 24.7 mIU/mL (2.6-18.5)
[2017-12-30 14:17] LABS: ALBUM 2.6 g/dL (2.9-4.4); ALPHA 1 0.3 g/dL (0.0-0.4); ALPHA 2 0.8 g/dL (0.4-1.0); BETA 0.7 g/dL (0.7-1.3); GAMMA 0.4 g/dL (0.4-1.8); M-SPIKE Not Observed g/dL (Not Observed); PROTEIN TOTAL 4.9 g/dL (6.0-8.5); SPEP AG RATIO 1.1 (0.7-1.7)
[2017-12-30 15:30] LABS: IMMUNOGLOBULIN A 106 mg/dL (64-422); IMMUNOGLOBULIN G 420 mg/dL (700-1600); IMMUNOGLOBULIN M 40 mg/dL (26-217)
== END 2017-12-28 16:30 | disposition home health service (06) | DRG 291 ==
LOC: ER 14:21 → 5 SOUTH 15:41
PROC: 5A1D70Z Performance of Urinary Filtration, Intermittent, Less than 6 Hours Per Day (ICD-10-PCS; principal; 2017-12-26)
PROC: 30233N1 Transfusion of Nonautologous Red Blood Cells into Peripheral Vein, Percutaneous Approach (ICD-10-PCS; 2017-12-26)
DX: I13.2 Hypertensive heart and chronic kidney disease with heart failure and with stage 5 chronic kidney disease, or end stage renal disease (principal); E43 Unspecified severe protein-calorie malnutrition; N18.6 End stage renal disease; D69.6 Thrombocytopenia, unspecified; J44.9 Chronic obstructive pulmonary disease, unspecified; D63.8 Anemia in other chronic diseases classified elsewhere; E83.51 Hypocalcemia; D72.819 Decreased white blood cell count, unspecified; Z68.21 Body mass index [BMI] 21.0-21.9, adult; E78.00 Pure hypercholesterolemia, unspecified; E78.5 Hyperlipidemia, unspecified; E87.6 Hypokalemia; I25.10 Atherosclerotic heart disease of native coronary artery without angina pectoris; I50.9 Heart failure, unspecified; I73.00 Raynaud's syndrome without gangrene; K21.9 Gastro-esophageal reflux disease without esophagitis; Z82.49 Family history of ischemic heart disease and other diseases of the circulatory system; Z83.3 Family history of diabetes mellitus; Z86.73 Personal history of transient ischemic attack (TIA), and cerebral infarction without residual deficits; Z87.891 Personal history of nicotine dependence; Z90.710 Acquired absence of both cervix and uterus; Z95.1 Presence of aortocoronary bypass graft; Z99.2 Dependence on renal dialysis; F41.9 Anxiety disorder, unspecified; R74.8 Abnormal levels of other serum enzymes
CPT/HCPCS: 36415; 80053; 82607; 82668; 82728; 82746; 83540; 83550; 83735; 84165; 85018; 85025; 85610; 86334; 86850; 86900; 86901; 86920; 99285; 99285-25; J0881; P9016

== ENCOUNTER → 2018-03-20 | Outpatient (CLI) | payer OTHER ==
[2018-03-20 13:12] LABS: HEMATOCRIT 21.3 % (36.0-47.0); HEMOGLOBIN 7.2 g/dL (12.0-15.5); MEAN CORPUSCULAR HGB CONC 34 g/dL (31-37)
[2018-03-20 14:17] LABS: IMMEDIATE SPIN CROSSMATCH 1 1
== END | disposition home or self-care (01) ==
LOC: OPS 12:40
DX: D64.9 Anemia, unspecified (principal); I25.10 Atherosclerotic heart disease of native coronary artery without angina pectoris; I13.2 Hypertensive heart and chronic kidney disease with heart failure and with stage 5 chronic kidney disease, or end stage renal disease; K21.9 Gastro-esophageal reflux disease without esophagitis; N18.6 End stage renal disease; I50.9 Heart failure, unspecified; E78.5 Hyperlipidemia, unspecified; E78.00 Pure hypercholesterolemia, unspecified; D63.1 Anemia in chronic kidney disease; Z87.891 Personal history of nicotine dependence
CPT/HCPCS: 36415; 36430; 85014; 85018; 86850; 86900; 86901; 86920; P9016